=== PATIENT | female | born 1960 | race Hispanic/Latino ===

== ENCOUNTER → 2025-03-27 | Outpatient (CLI) | payer OTHER ==
--- NOTE | 2025-03-27 10:26 | HMCIMG ---
Left BREAST ULTRASOUND: Finding: Real-time examination of the [right/left] breast demonstrates mildly heterogeneous echotexture throughout the breast without evidence of focal solid or cystic masses. The left breast there is a intramammary lymph node measuring 0.7 x 0.5 x 0.6 cm. There is multiple axillary lymph nodes. IMPRESSION: Mildly dense breast with no lesion seen.. FINAL ASSESSMENT: ACR: BI-RAD- 2. Benign Finding.
--- NOTE | 2025-03-27 10:31 | HMCIMG ---
DIGITAL bilateral DIAGNOSTIC MAMMOGRAM Technique: The digital mammographic examination of both breasts in craniocaudal, mediolateral oblique views along with CAD was obtained. Ultrasound of the left breast was obtained History: This is a 64 years year-old female complaining of left breast pain. Patient has no family history of breast cancer. Patient has no complaint Reference:Baseline. Breast composition: Breast composition C: The breasts are heterogeneously dense, which may obscure small masses. Finding: The digital mammographic examination of both breasts in craniocaudal and mediolateral oblique view along with CAD demonstrates to be moderately heterogeneously nodular dense. In the left axillary tail there is a benign-appearing lymph node.. There is no evidence of any dendritic mass, cluster microcalcification or architectural distortion. The retromammary fat appears to be normal. IMPRESSION: Due to heterogeneously nodular dense breasts the left breast sonogram demonstrate intramammary lymph node but right breast sonogram was not performed I would recommend a right breast sonogram. FINAL ASSESSMENT: ACR: BI-RAD -0. Incomplete: need additional imaging evaluation. NOTE: IF A WORK-UP OF THIS PATIENT LEADS TO A BIOPSY, PLEASE FORWARD A COPY OF THE PATHOLOGY REPORT TO OUR OFFICE REQUIRED BY [facility] E[facility]ECT[facility] FEBRUARY 06, 1994. A NEGATIVE MAMMOGRAM SHOULD NOT PRECLUDE BIOPSY OF A CLINICALLY PALPABLE SUSPICIOUS MASS, 10% OF BREAST CANCERS ARE MAMMOGRAPHICALLY OCCULT. THIS MAMMOGRAPHY FACILITY IS FULLY ACCREDITED BY THE FOOD AND [employer]UG [employer]MIN[employer]RATION (FDA). THANK YOU FOR THIS REFERRAL.
== END | disposition home or self-care (01) ==
LOC: RAH 07:28
PROVIDERS: ATTEND Internal Medicine
DX: R92.333 Mammographic heterogeneous density, bilateral breasts (principal); R59.0 Localized enlarged lymph nodes; N64.4 Mastodynia
CPT/HCPCS: 76641; 77066